=== PATIENT | male | born 1965 | race Two or more races ===

== ENCOUNTER 2022-03-07 08:42 | Outpatient (CLI) | payer OTHER ==
[~2022-03-07] VITALS: Ht 167.6 cm; Wt 49.4 kg
== END 2022-03-07 09:04 | disposition home or self-care (01) ==
LOC: LAB 08:42
PROVIDERS: ATTEND Orthopaedic Surgery
DX: D64.9 Anemia, unspecified (principal); E88.9 Metabolic disorder, unspecified; D68.8 Other specified coagulation defects; N39.0 Urinary tract infection, site not specified; E11.9 Type 2 diabetes mellitus without complications; Z76.89 Persons encountering health services in other specified circumstances; I10 Essential (primary) hypertension

== ENCOUNTER 2022-03-17 06:00 | Day surgery (SDC) | payer OTHER ==
[~2022-03-17 06:00] MED LIST: ISOSORBIDE DINI30 MG PO; LIPITOR; NITROGLYCERIN0.4 MG SL; NORVASC2.5 MG PO
== END 2022-03-17 15:00 | disposition home or self-care (01) ==
LOC: CIR.AMB 06:00
PROVIDERS: ATTEND Orthopaedic Surgery
DX: S83.241A Other tear of medial meniscus, current injury, right knee, initial encounter (principal); S83.281A Other tear of lateral meniscus, current injury, right knee, initial encounter; X58.XXXA Exposure to other specified factors, initial encounter; Y93.9 Activity, unspecified; Y92.9 Unspecified place or not applicable; M94.261 Chondromalacia, right knee; M65.861 Other synovitis and tenosynovitis, right lower leg; I10 Essential (primary) hypertension; E11.9 Type 2 diabetes mellitus without complications; Z20.822 Contact with and (suspected) exposure to COVID-19